=== PATIENT | male | born 1955 | race Caucasian/White ===

== ENCOUNTER 2017-04-09 06:27 | Inpatient (IN) ==
--- NOTE | 2017-04-08 15:25 | Discharge Summary ---
<Imani Dunne E - Last Filed: 04/08/17 15:23> Date of Encounter: 04/08/17 - Discharge Diagnosis (1) Arthritis of left knee Priority: Primary Status: Chronic (2) COPD (chronic obstructive pulmonary disease) Priority: Secondary Status: Chronic Comments: per record, h/o asthma as well Qualifiers: COPD type: unspecified COPD Qualified Code(s): J44.9 - Chronic obstructive pulmonary disease, unspecified (3) JAQUELIN on CPAP Priority: Secondary Status: Chronic (4) History of lung cancer Priority: Secondary Status: Chronic (5) Bipolar disorder Priority: Secondary Status: Chronic Qualifiers: Active/Remission status: remission status unspecified Qualified Code(s): F31.9 - Bipolar disorder, unspecified (6) BMI 37.0-37.9, adult Priority: Secondary Status: Chronic - Discharge Medications Home Medications: Aspirin Enteric Coated [Aspirin EC] 325 mg PO DAILY #21 tablet. 04/08/17 [Rx] OxyCODONE Immed Rel [Roxicodone 5 MG] 5 - 10 mg PO Q6HR PRN #40 tablet 04/08/17 [Rx] Acetaminophen [Tylenol] 500 mg PO Q6HR PRN 04/09/17 [History] Albuterol Sulfate [Ventolin Hfa] 2 puff IH Q8H PRN 04/09/17 [History] Alfuzosin HCl [Uroxatral] 10 mg PO DAILY 04/09/17 [History] Aspirin [Lo-Dose Aspirin EC] 81 mg PO DAILY 04/09/17 [History] Cholecalciferol (D-3) [Vitamin D] 1,000 unit PO DAILY 04/09/17 [History] Divalproex (24 HR) [Depakote ER (24 HR)] 750 mg PO HS 04/09/17 [History] Gabapentin [Neurontin] 800 mg PO TID 04/09/17 [History] Guaifenesin [Tab Tussin] 400 mg PO Q12H PRN 04/09/17 [History] Meloxicam [Mobic] 15 mg PO DAILY 04/09/17 [History] Omeprazole [PriLOSEC] 20 mg PO DAILY 04/09/17 [History] Sennosides/Docusate Sodium [Senna-Docusate Sodium Tablet] 1 each PO DAILY PRN [History] Tiotropium [Spiriva] 18 mcg IH 0700 04/09/17 [History] Trazodone HCl 100 mg PO HS 04/09/17 [History] Allergies/Adverse Reactions: Allergies No Known Allergies Allergy (Verified 04/09/17 07:23) Primary care physician: PRISCILLA TAVAREZ - Patient Status Disposition: Home, Self-Care Condition: Good - Discharge Instructions [facility] With[facility] Care Provider[facility] - Additional Instructions: Discharge Instructions: Total Knee Replacement Please call [facility] ([phone]), your Primary Care Physician, or report to the Emergency Room if you have any of the following symptoms: Nausea, vomiting, fever greater that 101.5, swelling, chest pain, shortness of breath, increased pain/redness/drainage/odor for your incision site, numbness/ tingling, or any other concerning symptoms. ACTIVITY:Weight-bearing as tolerated. You may progress off support (crutches or walker) as tolerated. MEDICATIONS: Upon discharge resume your home medications. Take all the medications as prescribed. Take a stool softener if taking narcotic pain medications. Stool softeners are only effective if you drink enough fluids. Drink 6-8 glass of water or fluids a day, unless this is not allowed for another health problem. Despite using stool softeners, if you haven't had a bowel movement in 3 days, please switch to a gentle laxative. Gentle laxatives are sold over the counter. You should have a bowel movement within 24 hours, if not call the office. You will be discharged from the hospital with a prescription for pain medication. You are encouraged to decrease the use of narcotic pain medication as tolerated. Should you require a refill, please call the office. [facility] prescribes narcotic pain medication for only 4-6 weeks after surgery. If you require pain medication beyond this time period, you may be referred to your Primary Care Physician or to the Pain Clinic for further evaluation. Plan ahead for refills on pain medication as many narcotics either need to be picked up at the office or mailed. It is best to call 48-72 hours in advance of needing a prescription refill so you don't run out of medication. To help control the post-operative pain, you may take NSAIDs (Aleve,Advil, Motrin, Ibuprofen, Naprosyn) or Tylenol as prescribed on the bottle in addition to the pain medication. ANTICOAGULATION (blood thinners): Continue your Aspirin, Lovenox or Coumadin as prescribed to help prevent a blood clot in the leg or in the lungs. As long as your incision remains dry and you tolerate the NSAIDs (Aleve, Advil, Motrin, ibuprofen, naprosyn), it is OK to use the NSAIDS while you are taking your anticoagulation medication. Should your incision start to drain, stop the NSAID and contact our office. Common symptoms of blood clot in the legs include: localized pain, swelling, calf tenderness, redness or discoloration of the skin. Blood clot in the lung symptoms include: shortness of breath, rapid pulse, sweating, and chest pain that worsens with deep breathing, coughing up blood, lightheadedness, feelings of anxiety. If you experience any of these symptoms notify your physician immediately, go to the emergency room, or if having trouble breathing, call 911. WOUND CARE: Leave the dressing on for 7 to 10days. You may change the dressing if it becomes saturated greater than 50%. Do not get the dressing wet at anytime. Wash your hands with antibacterial soap, rinse and dry prior to any wound care. If you have brittany the visiting nurse or rehab facility can remove the stapes 10-14 days after surgery and place steri-strips across the wound. Leave the steri-strips in place until they fall off on their won. You may let water from the shower run on top of the steri-strips. If you do not have a visiting nurse or rehab facility, you will need to return to the office at 10-14 days for the brittany to be removed. If you have itching or redness around the dressing call the office. FOLLOW-UP: Please follow up with your surgeon in the orthopedic clinic in 4 weeks from the day of surgery. If you have brittany that need to be removed, you will need to come back to the office in 10-14 days from the day of surgery. - Hospital Course Hospital course: Mr. Anna is a 61 year old male - Time Spent with Patient Total time spent providing and/or coordinating discharge services: - VTE Documentation of Mechanical Device: Venous foot pump, device <Jcarlos Waters - Last Filed: 04/11/17 09:58> Date of Encounter: 04/11/17 Time of Encounter: 09:58 - Discharge Diagnosis (1) Arthritis of left knee Priority: Primary Status: Chronic (2) COPD (chronic obstructive pulmonary disease) Priority: Secondary Status: Chronic Qualifiers: COPD type: unspecified COPD Qualified Code(s): J44.9 - Chronic obstructive pulmonary disease, unspecified (3) JAQUELIN on CPAP Priority: Secondary Status: Chronic (4) History of lung cancer Priority: Secondary Status: Chronic (5) Bipolar disorder Priority: Secondary Status: Chronic Qualifiers: Active/Remission status: remission status unspecified Qualified Code(s): F31.9 - Bipolar disorder, unspecified (6) Obesity (BMI 30-39.9) Priority: Secondary Status: Chronic [facility] - Patient Status Overall status at discharge: patient is progressing back to baseline - Hospital Course Hospital course: Mr. Anna is a 61 year old male The patient had an uneventful postoperative course. They received antibiotics and physical therapy and were discharged in stable condition. There will follow -up in the office in 2 weeks. Status post right total knee replacement - Time Spent with Patient Total time spent providing and/or coordinating discharge services:
[2017-04-09] MEDS ORDERED: Albuterol 2.5 MG/3 ML NEBULIZER IH ONE (06:38)
[2017-04-09] MEDS ORDERED: CeFAZolin Pre 2,000 MG/100 ML 2,000 MG/100 ML BAG IVPB ONE (06:38)
[2017-04-09] MEDS ORDERED: Ringers Solution, Lactated 1,000 ML IVC SCH ×2 (06:45→10:56)
--- NOTE | 2017-04-09 06:54 | History & Physical Report ---
Date of Encounter: 04/09/17 Time of Encounter: 06:53 24 Hour HP Update - Instructions Instructions: If the History and Physical is less than 30 days old and was completed prior to A.M. admission and or procedure and has NOT been updated on calendar day of procedure please complete this update prior to performing procedure. - Update Patient reports changes in Medical Condition: No Changes in examination, assessment, or condition: No Changes in Medication: No Preop tests/diagnostics Reviewed: Yes Surgery Remains Indicated: Yes Consent for Planned Operative Procedure(s) Verified: Yes - Pre-Operative Checklist Preoperative Checklist Indicated: No Prophylactic Antibiotic Ordered: Yes Is VTE Prophylaxis Indicated?: Yes
[2017-04-09] MEDS ORDERED: *HR* FentaNYL (PF) 100 MCG/2 ML VIAL ONE (07:15)
[2017-04-09] MEDS ORDERED: *HR* Propofol 200 MG/20 ML VIAL IVP ONE (07:15)
[2017-04-09] MEDS ORDERED: *HR* Midazolam HCl 2 MG/2 ML VIAL ONE (07:15)
[2017-04-09] MEDS ORDERED: Dexamethasone 4 MG/ML VIAL ONE (07:16)
[2017-04-09] MEDS ORDERED: Lidocaine -MPF 2% 2 ML VIAL ONE (07:16)
[2017-04-09] MEDS ORDERED: Ondansetron 4 MG/2 ML VIAL ONE (07:16)
--- NOTE | 2017-04-09 07:24 | Anesthesia Evaluation PreOp ---
Date of Encounter: 04/09/17 Time of Encounter: 07:21 - Past History Planned Operation: Left Total Knee Arthroplasty Cardiac History: Denies any Significant Hx Pulmonary History: Former smoker (quit in 1999, smoked for 20+ years), Asthma, JAQUELIN Dx (uses CPAP), Other (lung CA S/P left upper lobectomy, S/P chemo) DIRECTOR OF PROFESSIONAL SERVICES History: Denies Any Significant HX Other Medical History: GERD, Other (bipolar/anxiety) Anesthesia History: No Prior Anesthetic Complications, Past Anesthesia Alcohol Use: none Drug use: marijuana Medications and Allergies Aspirin Enteric Coated [Aspirin EC] 325 mg PO DAILY #21 tablet. 04/08/17 [Rx] OxyCODONE Immed Rel [Roxicodone 5 MG] 5 - 10 mg PO Q6HR PRN #40 tablet 04/08/17 [Rx] Acetaminophen [Tylenol] 500 mg PO Q6HR PRN 04/09/17 [History] Alfuzosin HCl [Uroxatral] 10 mg PO DAILY 04/09/17 [History] Aspirin [Lo-Dose Aspirin EC] 81 mg PO DAILY 04/09/17 [History] Cholecalciferol (D-3) [Vitamin D] 1,000 unit PO DAILY 04/09/17 [History] Divalproex (24 HR) [Depakote ER (24 HR)] 1,500 mg PO HS 04/09/17 [History] Docusate [Colace] 100 mg PO DAILY PRN 04/09/17 [History] Gabapentin [Neurontin] 800 mg PO TID 04/09/17 [History] Guaifenesin [Tab Tussin] 400 mg PO Q4H PRN 04/09/17 [History] Omeprazole [PriLOSEC] 20 mg PO DAILY 04/09/17 [History] Tiotropium [Spiriva] 18 mcg IH 0700 04/09/17 [History] Trazodone HCl 100 mg PO HS 04/09/17 [History] Allergies No Known Allergies Allergy (Verified 04/09/17 07:23) - Meds/Allergy Pre-op Review Medications Reviewed: Yes Allergies Reviewed: Yes Beta Blockers on Current Med List: No Anesthesia Results - Labs Laboratory Tests 03/21/17 03/21/17 03/21/17 15:40 15:40 15:40 WBC 9.9 Hgb 15.1 Hct 46.6 Plt Count 227 PT 11.7 INR 1.1 APTT 30.4 Sodium 141 Potassium 4.4 BUN 15 Creatinine 1.03 - Imaging EKG: report reviewed (04/15/2015 SR, occasional supraventricular premature complexes, inferior infarct) Anesthesia Exam O2 Sat Height 1.75 m Height 1.75 m Height 1.75 m Weight 110.223 kg Weight 110.223 kg Weight 110.223 kg O2 Sat by Pulse Oximetry 94 Vital Signs Temp Pulse Resp BP Pulse Ox 98.1 F 67 18 134/81 94 04/09/17 06:44 04/09/17 06:44 04/09/17 06:44 04/09/17 06:44 04/09/17 06:44 Height: 5'9'' Weight: 243 lbs NPO (# of Hours): 8 Pain Scale: 7 (left knee) Pain Scale Used: Numeric (1 - 10) - HEENT Pupil (Motor): EOMI Mallampati: II Teeth: Edentulous Oral Opening: Greater than 3 - DIRECTOR OF PROFESSIONAL SERVICES LOC: Oriented DIRECTOR OF PROFESSIONAL SERVICES Motor: Normal RUE, Normal LUE, Normal RLE, Normal LLE, Normal Face DIRECTOR OF PROFESSIONAL SERVICES Sensory: Normal: RUE, Face, Deficit: LUE (neuropathy left ring finger), RLE (neuropathy in foot), LLE (neuropathy in foot) - Cardiac Rhythm: Regular Murmur: None - Pulmonary Breath Sounds: bilateral Clear Respiratory Effort: Symmetrical Anesthesia Assess/Plan ASA Score: 3 Modified Tiffani Scale for Level of Consciousness: Cooperative, oriented, and tranquil Anesthetic Plan: General, Regional Monitoring Plan: Standard Monitors Recovery Plan: PACU
[2017-04-09] MEDS ORDERED: *HR* Labetalol 20 MG/4 ML SYRINGE IVP PRN (07:26)
[2017-04-09] MEDS ORDERED: *HR* Morphine 2 MG/ML SYRINGE IVP PRN (07:26)
[2017-04-09] MEDS ORDERED: Ondansetron 4 MG/2 ML VIAL IVP ONE (07:26)
[2017-04-09] MEDS ORDERED: Dexamethasone 4 MG/ML VIAL IVP ONE (07:26)
[2017-04-09] MEDS ORDERED: *HR* Promethazine 25 MG/ML VIAL IVP PRN (07:26)
[2017-04-09] MEDS ORDERED: Bupivacaine/Clonidine Syringe 1 EACH SYRINGE ONE (07:49)
[2017-04-09] MEDS ORDERED: ROPIVACAINE HCL/PF 0.5% 30 ML VIAL ONE (07:49)
--- NOTE | 2017-04-09 08:27 | Anesthesia Procedures ---
Date of Encounter: 04/09/17 Time of Encounter: 08:15 Procedures: Anesthesia - Nerve Block Procedure Date: 04/09/17 Time: 08:15 Allergies/Adv Reactions: nka Surgical Procedure: Left TKA Checklist: Correct Patient Identifier, Correct procedure, History checked Correct side: Left Blood Thinner: No Monitor Applied: EKG, BP, Pulse Oximetry Supplemental Oxygen via Nasal Cannula (L/min): 2 Sedation: Versed (mg): 2 Sedation: Fentanyl (mcg): 50 Indication: Post Op Analgesia (per dr. mcneal) Pre-op Neuro Deficits: No Block Type: Femoral, Other (ipack) Catheter placed: No Sterile Technique: Yes Ultrasound used: Yes Anatomy identified: Yes Visual spread of Local: Yes Neuro Stimulation: Yes Nerve Stimulator Range: 0.2 - 0.4 mA Blood on Needle Aspiration: No Smooth Injection of Local: Yes Pain with Injection of Local: No Prep: Chlorhexadine Needle: 22 x 50 mm Stimuplex (femoral), 21 x 100 mm Stimuplex (ipack) Local: 0.25% Bupivicaine w/Clonidine 20 mcg/cc (ipack), Ropivacaine (o.5% femoral) Volume (cc): 30 femoral, 20 ipack Number of Attempts: 1 Complications: None/effective block Vitals: Vital Signs/O2 Sat/Glucose, Most Recent Temp Pulse Resp BP Pulse Ox 98.1 F 67 16 113/85 95 04/09/17 06:44 04/09/17 08:21 04/09/17 08:21 04/09/17 08:21 04/09/17 08:21 Comments: [facility]
[2017-04-09] MEDS ORDERED: *HR* Morphine 10 MG/ML VIAL ONE (09:09)
--- NOTE | 2017-04-09 09:18 | Orthopedic Operative Note ---
Date of procedure: 04/09/17 Pre-op diagnosis: Left knee arthritis Post-op diagnosis: same Procedure: Procedure: Left Total knee replacement Estimated blood loss: 200 cc Hardware: Metal and polyethylene replacement. Arthrex Femur: 7 Tibia: 5 PS insert: 14 Patella: 37 Exam Under anesthesia: Full flexion and extension no instability Procedural Notes: Grade 3 arthritic changes medial compartment and patellofemoral joint, grade 4 arthritic changes lateral compartment. Operative procedure: The patient was brought to the operating room and placed on the operating room table. After general anesthesia was administered the operative knee was examined. Findings were noted in the exam under anesthesia. The operative extremity was prepped and draped in sterile surgical fashion. The patient received IV antibiotics prior to skin incision. A standard midline incision was made centered over the patella. The incision was made through the skin and subcutaneous tissue. A medial parapatellar tendon approach was performed. Care was taken to preserve tissue along the medial aspect of the patella. And to protect the patella tendon. The deep MCL was released off the medial tibia. The infra patella fat pad was excised. Knee was brought into flexion. Patient noted to have grade 3 arthritic changes medial compartment and patellofemoral joint, grade 4 arthritic changes lateral compartment. The entry hole was made for the intramedullary femoral guide. The guide was seated in 6 degrees of valgus. Anterior cut was made followed by the distal cut. The ACL the PCL the medial and the lateral menisci were excised. The tibia was subluxed forward. The entry hole was made for the intramedullary tibial guide. Guide was seated to resect 2 mm off the more abnormal side. The knee was brought into flexion the distal femur was sized to a 7. The femoral guide was seated, the anterior cut was made followed by the posterior condylar cut, followed by the chamfer cuts. The finishing guide was seated the box cut was made and the lug holes were drilled. The tibia was sized to a 5, the tibial tray was seated and prepared with the large drill followed by the fin cutter. Trial reduction revealed full extension no varus valgus instability with the appropriate 14 PS Marisela. The patella was everted and cut was made at the level of the insertion of the quadriceps and patella tendon. The patella was sized 37 the guide was seated and the lug holes are drilled. Trial reduction revealed excellent patella tracking. All trial components were removed all bony surfaces were irrigated. The tibia was cemented first followed by the femur. The 14 PS Marisela was seated and the knee was brought into full extension. The patella was cemented and held in place with the patellar holding clamp. After the cement had hardened, the knee sat for 2 minutes with a Betadine saline solution. The knee was then irrigated out with 2 L of pulse irrigation. The knee was closed by the PA .The extensor mechanism was closed with #2 FiberWire suture and #2 PDS suture. The subcutaneous tissue was then irrigated and closed deep with #1 PDS suture superficially with 0 PDS suture and skin was closed with skin brittany. The patient was then placed in a sterile dressing and a postoperative brace extubated and transferred to recovery room in stable condition. Anesthesia: ANNA Surgeon: Jcarlos Waters Press Officer: Imani Dunne
[2017-04-09] MEDS ORDERED: Ketorolac 30 MG/ML VIAL ONE (09:21)
[2017-04-09] MEDS ORDERED: *HR* HYDROmorphone (PF) 1 MG/ML SYRINGE ONE (10:03)
[2017-04-09] MEDS: *HR* HYDROmorphone (PF) 1 MG/ML SYRINGE IVP PRN ×2 (10:05→10:10)
--- NOTE | 2017-04-09 10:19 | Anesthesia Evaluation Post Op ---
Date of Encounter: 04/09/17 Time of Encounter: 10:18 - Vital Signs Vital Signs: Vital Signs/O2 Sat/Glucose, Most Recent Temp Pulse Resp BP Pulse Ox 98.1 F 67 16 113/85 95 04/09/17 06:44 04/09/17 08:21 04/09/17 08:21 04/09/17 08:21 04/09/17 08:21 - Lungs Lungs: Clear Ascult./Percussion - Airway Airway: Non-obstructed - Cardiovascular Regular Rate - Mental Status Mental Status: Alert & Oriented, Answers Appropriately - Pain Pain Scale: 0 Pain Scale used: Numeric (1 - 10) - Nausea Vomiting Nausea Vomiting: Not Present - Hydration Hydration: Ice chips - Discharge PostOp Status: Discharge Patient to home
[2017-04-09 10:46] LABS: Hematocrit 45.3 % (37.5-50.1); Hemoglobin 14.7 g/dL (12.9-16.9)
[2017-04-09] MEDS ORDERED: *HR* HYDROmorphone (PF) 1 MG/ML SYRINGE IVP PRN (10:56)
[2017-04-09] MEDS ORDERED: Naloxone 0.4 MG/ML INJ IVP PRN (10:56)
[2017-04-09] MEDS ORDERED: GuaiFENesin Liq 200 MG/10 ML UDC PO PRN (10:56)
[2017-04-09] MEDS ORDERED: MOM Conc 10 ML UD.LIQ PO PRN (10:56)
[2017-04-09] MEDS ORDERED: Ondansetron 4 MG/2 ML VIAL IVP PRN (10:56)
[2017-04-09] MEDS ORDERED: Sennosides 8.6 MG TABLET PO PRN (10:56)
[2017-04-09] MEDS ORDERED: *HR* OxyCODONE Immed Rel 5 MG TABLET PO PRN (10:56)
[2017-04-09] MEDS ORDERED: Temazepam 15 MG CAPSULE PO PRN (10:56)
[2017-04-09] MEDS: *HR* OxyCODONE Immed Rel 5 MG TABLET PO PRN ×3 (11:46→20:33)
[2017-04-09] MEDS: Aspirin Enteric Coated 81 MG Tablet PO SCH ×2 (16:36→20:34)
[2017-04-09] MEDS: Cholecalciferol (D-3) 1,000 UNIT TABLET PO SCH (16:37)
[2017-04-09] MEDS: ceFAZolin 2,000 MG in D5% in Water 100 ML IVPB SCH (16:37)
[2017-04-09] MEDS: Gabapentin 400 MG CAPSULE PO SCH ×2 (16:37→20:32)
[2017-04-09] MEDS ORDERED: *HR* Enoxaparin 30 MG/0.3 ML SYRINGE SQ SCH (18:00)
[2017-04-09] MEDS: *HR* Enoxaparin 30 MG/0.3 ML SYRINGE SQ SCH (19:35)
[2017-04-09] MEDS: traZODone 50 MG TABLET PO SCH (20:32)
[2017-04-09] MEDS: Divalproex (24 HR) 500 MG TABLET PO SCH (20:33)
[2017-04-10] MEDS: ceFAZolin 2,000 MG in D5% in Water 100 ML IVPB SCH (00:18)
[2017-04-10] MEDS: Aspirin Enteric Coated 81 MG Tablet PO SCH ×2 (01:32→20:17)
[2017-04-10] MEDS: *HR* Enoxaparin 30 MG/0.3 ML SYRINGE SQ SCH ×2 (04:57→17:02)
[2017-04-10] MEDS: *HR* OxyCODONE Immed Rel 5 MG TABLET PO PRN ×5 (04:57→22:13)
[2017-04-10 06:48] LABS: Hematocrit 38.6 % (37.5-50.1)
--- NOTE | 2017-04-10 06:50 | Orthopedics Progress Note ---
Date of Encounter: 04/10/17 Time of Encounter: 06:50 - Assessment and Plan (1) Arthritis of left knee Current Visit: Yes Status: Chronic (2) COPD (chronic obstructive pulmonary disease) Current Visit: Yes Status: Chronic Qualifiers: COPD type: unspecified COPD Qualified Code(s): J44.9 - Chronic obstructive pulmonary disease, unspecified (3) JAQUELIN on CPAP Current Visit: Yes Status: Chronic (4) History of lung cancer Current Visit: Yes Status: Chronic (5) Bipolar disorder Current Visit: Yes Status: Chronic Qualifiers: Active/Remission status: remission status unspecified Qualified Code(s): F31.9 - Bipolar disorder, unspecified (6) BMI 37.0-37.9, adult Current Visit: Yes Status: Chronic Subjective Interval history: Patient was seen this morning doing well without complaints. Afebrile vital signs stable. Operative extremity: Neurovascularly intact Dressing clean dry and intact Calves nontender Assessment and plan: Continue with postoperative care Postop hematocrit 45 Objective Vital signs: Vital Signs Temp Pulse Resp BP Pulse Ox 04/10/17 06:41 98.0 F 46 18 100/65 97 04/10/17 04:19 98.2 F 70 16 105/69 94 04/10/17 00:30 97.9 F 62 17 110/75 93 04/09/17 20:22 97.9 F 86 17 127/85 95 04/09/17 15:23 98.1 F 91 18 131/90 94 04/09/17 13:55 98.1 F 102 15 126/88 93 04/09/17 11:48 98.0 F 71 15 123/79 90 04/09/17 11:35 97.9 F 86 15 146/95 92 04/09/17 11:26 97.9 F 77 16 146/95 94 04/09/17 11:12 98.0 F 82 15 144/91 93 04/09/17 11:11 98 04/09/17 10:55 98.0 F 81 20 144/89 97 04/09/17 10:46 97.8 F 99 16 156/94 98 04/09/17 10:36 87 16 153/93 98 04/09/17 10:26 97.8 F 75 16 156/94 96 04/09/17 10:16 79 16 153/105 96 04/09/17 10:06 83 16 153/90 96 04/09/17 09:56 97.3 F L 67 16 148/91 97 04/09/17 08:21 67 16 113/85 95 04/09/17 07:58 66 17 127/77 66 Intake and Output 04/09/17 04/09/17 04/10/17 15:59 23:59 07:59 Intake Total 560 / 560 440 / 440 100 / 100 Output Total 1050 / 1050 Balance 560 / 560 440 / 440 -950 / -950 Intake: IV Fluids 200 / 200 100 / 100 100 / 100 Ancef Premix 2,000 MG/100 200 / 200 ML 2,000 mg In 100 ml @ 200 mls/hr IVPB PREOP ONE Rx#:[id number] Ancef 2,000 MG In 100 / 100 100 / 100 Dextrose 5% 100 ML @ 200 mls/hr IVPB Q8HR MICHA Rx#: [id number] Oral 360 / 360 340 / 340 Output: Urine 1050 / 1050 Other: Meal Lunch Dinner Percent of Meal Consumed 100% 100% # Voids 1 1 Weight 122.6 kg Patient Weight 04/10/17 23:59 Weight 122.6 kg - Labs CBC & BMP: 04/09/17 10:13 - VTE Documentation of Mechanical Device: Venous foot pump, device Consult Discharge Plan - Plan [facility]errals: [facility] [Primary Care Provider] -
[2017-04-10 06:52] LABS: Hemoglobin 12.6 g/dL (12.9-16.9)
[2017-04-10 07:05] LABS: BUN/Creatinine Ratio 14 (6-26); Blood Urea Nitrogen 14 mg/dL (8-26); Calcium 8.7 mg/dL (8.6-10.8); Carbon Dioxide 31 mEq/L (19-29); Chloride 104 mEq/L (98-109); Glucose 120 mg/dL (70-99); Osmolality,Calculated 294 (280-300); Potassium 4.5 mEq/L (3.5-4.5); Sodium 141 mEq/L (136-145); eGFR For African Americans > 60 (> 60); eGFR For Non-African Americans > 60 (> 60)
[2017-04-10] MEDS: Cholecalciferol (D-3) 1,000 UNIT TABLET PO SCH (09:02)
[2017-04-10] MEDS: Gabapentin 400 MG CAPSULE PO SCH ×3 (09:02→20:16)
[2017-04-10] MEDS: Tiotropium 18 MCG inhalation IH SCH ×2 (10:44→12:00)
--- NOTE | 2017-04-10 13:27 | Event Note ---
Date of Encounter: 04/10/17 Time of Encounter: 13:26 PCR - POD#1 lEFT TKR Patient seen at bedside, doing well. Cough with sputum noted, discussed continuing IS. Pain controlled. All questions and concerns addressed. Patient educated on post-operative restrictions and care. Addressed: PAIN CONTROL, LOWER LEG NUMBNESS FROM BLOCK DISCUSSED. Will order breathing treatment today D/C plan: [facility] today [facility] tomorrow
[2017-04-10] MEDS: Divalproex (24 HR) 500 MG TABLET PO SCH (20:16)
[2017-04-10] MEDS: traZODone 50 MG TABLET PO SCH (20:16)
[2017-04-11] MEDS: *HR* OxyCODONE Immed Rel 5 MG TABLET PO PRN ×2 (03:03→08:21)
[2017-04-11] MEDS: *HR* Enoxaparin 30 MG/0.3 ML SYRINGE SQ SCH (04:52)
[2017-04-11 05:08] LABS: Hematocrit 36.6 % (37.5-50.1); Hemoglobin 12.3 g/dL (12.9-16.9)
[2017-04-11 05:29] LABS: BUN/Creatinine Ratio 13 (6-26); Blood Urea Nitrogen 12 mg/dL (8-26); Calcium 8.7 mg/dL (8.6-10.8); Carbon Dioxide 36 mEq/L (19-29); Chloride 99 mEq/L (98-109); Glucose 126 mg/dL (70-99); Osmolality,Calculated 285 (280-300); Potassium 4.4 mEq/L (3.5-4.5); Sodium 137 mEq/L (136-145); eGFR For African Americans > 60 (> 60); eGFR For Non-African Americans > 60 (> 60)
[2017-04-11] MEDS: Tiotropium 18 MCG inhalation IH SCH (08:28)
[2017-04-11] MEDS: Cholecalciferol (D-3) 1,000 UNIT TABLET PO SCH (09:08)
[2017-04-11] MEDS: Gabapentin 400 MG CAPSULE PO SCH (09:09)
--- NOTE | 2017-04-11 09:59 | Orthopedics Progress Note ---
Date of Encounter: 04/11/17 Time of Encounter: 09:58 - Assessment and Plan (1) Arthritis of left knee Current Visit: Yes Status: Chronic (2) COPD (chronic obstructive pulmonary disease) Current Visit: Yes Status: Chronic Qualifiers: COPD type: unspecified COPD Qualified Code(s): J44.9 - Chronic obstructive pulmonary disease, unspecified (3) JAQUELIN on CPAP Current Visit: Yes Status: Chronic (4) History of lung cancer Current Visit: Yes Status: Chronic (5) Bipolar disorder Current Visit: Yes Status: Chronic Qualifiers: Active/Remission status: remission status unspecified Qualified Code(s): F31.9 - Bipolar disorder, unspecified (6) Obesity (BMI 30-39.9) Current Visit: Yes Status: Chronic Subjective Interval history: Patient was seen this morning doing well without complaints. Afebrile vital signs stable. Operative extremity: Neurovascularly intact Dressing clean dry and intact Calves nontender Assessment and plan: Continue with postoperative care Discharged today Objective Vital signs: Vital Signs Temp Pulse Resp BP Pulse Ox 04/11/17 09:00 93 04/11/17 06:38 97.9 F 99 20 134/87 93 04/11/17 03:48 98.9 F 94 17 147/97 95 04/10/17 23:44 98.8 F 93 17 135/89 95 04/10/17 19:22 98.6 F 95 17 153/79 98 04/10/17 14:00 98.5 F 84 20 131/77 93 04/10/17 12:01 16 99 04/10/17 10:54 98.0 F 73 18 103/62 97 Intake and Output 04/10/17 04/11/17 04/11/17 23:59 07:59 15:59 Intake Total 570 / 570 100 / 100 240 / 240 Output Total 200 / 200 975 / 975 Balance 370 / 370 -875 / -875 240 / 240 Intake: Oral 570 / 570 100 / 100 240 / 240 Output: Urine 200 / 200 975 / 975 Other: Meal Breakfast Percent of Meal Consumed 75% Weight 122.4 kg Patient Weight 04/11/17 23:59 Weight 122.4 kg - Labs CBC & BMP: 04/11/17 04:52 04/11/17 04:52 Labs: Abnormal lab results Hgb 12.3 g/dL (12.9-16.9) L 04/11/17 04:52 Hct 36.6 % (37.5-50.1) L 04/11/17 04:52 Carbon Dioxide 36 mEq/L (19-29) H 04/11/17 04:52 Glucose 126 mg/dL (70-99) H 04/11/17 04:52 - VTE Documentation of Mechanical Device: Venous foot pump, device Consult Discharge Plan - Plan Additional Instructions: Discharge Instructions: Total Knee Replacement Please call [facility] ([phone]), your Primary Care Physician, or report to the Emergency Room if you have any of the following symptoms: Nausea, vomiting, fever greater that 101.5, swelling, chest pain, shortness of breath, increased pain/redness/drainage/odor for your incision site, numbness/ tingling, or any other concerning symptoms. ACTIVITY:Weight-bearing as tolerated. You may progress off support (crutches or walker) as tolerated. MEDICATIONS: Upon discharge resume your home medications. Take all the medications as prescribed. Take a stool softener if taking narcotic pain medications. Stool softeners are only effective if you drink enough fluids. Drink 6-8 glass of water or fluids a day, unless this is not allowed for another health problem. Despite using stool softeners, if you haven't had a bowel movement in 3 days, please switch to a gentle laxative. Gentle laxatives are sold over the counter. You should have a bowel movement within 24 hours, if not call the office. You will be discharged from the hospital with a prescription for pain medication. You are encouraged to decrease the use of narcotic pain medication as tolerated. Should you require a refill, please call the office. [facility] prescribes narcotic pain medication for only 4-6 weeks after surgery. If you require pain medication beyond this time period, you may be referred to your Primary Care Physician or to the Pain Clinic for further evaluation. Plan ahead for refills on pain medication as many narcotics either need to be picked up at the office or mailed. It is best to call 48-72 hours in advance of needing a prescription refill so you don't run out of medication. To help control the post-operative pain, you may take NSAIDs (Aleve,Advil, Motrin, Ibuprofen, Naprosyn) or Tylenol as prescribed on the bottle in addition to the pain medication. ANTICOAGULATION (blood thinners): Continue your Aspirin, Lovenox or Coumadin as prescribed to help prevent a blood clot in the leg or in the lungs. As long as your incision remains dry and you tolerate the NSAIDs (Aleve, Advil, Motrin, ibuprofen, naprosyn), it is OK to use the NSAIDS while you are taking your anticoagulation medication. Should your incision start to drain, stop the NSAID and contact our office. Common symptoms of blood clot in the legs include: localized pain, swelling, calf tenderness, redness or discoloration of the skin. Blood clot in the lung symptoms include: shortness of breath, rapid pulse, sweating, and chest pain that worsens with deep breathing, coughing up blood, lightheadedness, feelings of anxiety. If you experience any of these symptoms notify your physician immediately, go to the emergency room, or if having trouble breathing, call 911. WOUND CARE: Leave the dressing on for 7 to 10days. You may change the dressing if it becomes saturated greater than 50%. Do not get the dressing wet at anytime. Wash your hands with antibacterial soap, rinse and dry prior to any wound care. If you have brittany the visiting nurse or rehab facility can remove the stapes 10-14 days after surgery and place steri-strips across the wound. Leave the steri-strips in place until they fall off on their won. You may let water from the shower run on top of the steri-strips. If you do not have a visiting nurse or rehab facility, you will need to return to the office at 10-14 days for the brittany to be removed. If you have itching or redness around the dressing call the office. FOLLOW-UP: Please follow up with your surgeon in the orthopedic clinic in 4 weeks from the day of surgery. If you have brittany that need to be removed, you will need to come back to the office in 10-14 days from the day of surgery. [facility] Care Provider[facility] -
[2017-04-11 10:40] VITALS: BP 160/107
--- NOTE | 2017-04-11 11:14 | Physician Discharge Referral ---
Home Health/Hosp Referral Info Transfer to: Home Health Attending Provider: Dr. Jcarlos Waters - Diagnosis (1) Arthritis of left knee Priority: Primary Status: Chronic (2) COPD (chronic obstructive pulmonary disease) Priority: Secondary Status: Chronic (3) JAQUELIN on CPAP Priority: Secondary Status: Chronic (4) History of lung cancer Priority: Secondary Status: Chronic (5) Bipolar disorder Priority: Secondary Status: Chronic - Respiratory Orders Smoking Cessation: Smoking cessation has been advised. For more information, call the [place] Tobacco Quit Line at 5-991-WVWV-NOW. - Dressing/Wound Care Site: left knee Type of Dressing/Treatments w/Frequency: Opsite dressing, leave intact until first post-operative visit. If dressing becomes >50% saturated, contact office, remove dressing and place appropriate dressing in its place. Do not allow for dressing to get wet. Roe in place, plan to remove at post-operative day #14-16. - Diet/Nutrition Diet/Nutrition Orders: Regular - Activity Activity Orders: Ambulate, Chair, Walker Activity: List: Total Joint Precautions x 6 weeks Apply cold therapy wrap 3-6x/day for 20 minutes at a time. Encourage ambulation throughout the day Use Incentive spirometer 10x/hour. Elevate affected extremity above heart as tolerated. Brace: Wear knee immobilizer at night x 2 weeks. - Services Needed Following services are medically necessary services: Nursing, Physical Therapy, Occupational Therapy - Transfer Medications Home Medications: Aspirin Enteric Coated [Aspirin EC] 325 mg PO DAILY #21 tablet. 04/08/17 [Rx] OxyCODONE Immed Rel [Roxicodone 5 MG] 5 - 10 mg PO Q6HR PRN #40 tablet 04/08/17 [Rx] Acetaminophen [Tylenol] 500 mg PO Q6HR PRN 04/09/17 [History] Albuterol Sulfate [Ventolin Hfa] 2 puff IH Q8H PRN 04/09/17 [History] Alfuzosin HCl [Uroxatral] 10 mg PO DAILY 04/09/17 [History] Aspirin [Lo-Dose Aspirin EC] 81 mg PO DAILY 04/09/17 [History] Cholecalciferol (D-3) [Vitamin D] 1,000 unit PO DAILY 04/09/17 [History] Divalproex (24 HR) [Depakote ER (24 HR)] 750 mg PO HS 04/09/17 [History] Gabapentin [Neurontin] 800 mg PO TID 04/09/17 [History] Guaifenesin [Tab Tussin] 400 mg PO Q12H PRN 04/09/17 [History] Meloxicam [Mobic] 15 mg PO DAILY 04/09/17 [History] Omeprazole [PriLOSEC] 20 mg PO DAILY 04/09/17 [History] Sennosides/Docusate Sodium [Senna-Docusate Sodium Tablet] 1 each PO DAILY PRN [History] Tiotropium [Spiriva] 18 mcg IH 0700 04/09/17 [History] Trazodone HCl 100 mg PO HS 04/09/17 [History] Allergies/Adverse Reactions: Allergies No Known Allergies Allergy (Verified 04/09/17 07:23) Certification: Further, I certify that my clinical findings support that this patient is homebound (i.e. absences from home require considerable and taxing effort and are for medical reasons or jehovah's witness services or infrequently or short duration when for other reasons) because: Homebound Reason: Post-surgery restriction and or conditions limit ability to leave home Attestation: My signature below is to certify that this patient is under my care and that I, or nurse practitioner, or physician senior court office assistant working with me, has a face-to- face encounter with this patient.
== END 2017-04-11 11:08 | disposition home or self-care (01) | DRG 470 ==
LOC: SAMDAY 06:27 → 3NENU 11:00
PROVIDERS: ADMIT Orthopaedic Surgery; ATTEND Orthopaedic Surgery